=== PATIENT | male | born 1965 | race Caucasian/White ===

== ENCOUNTER 2023-10-18 08:48 | Inpatient (IN) | payer OTHER ==
[2023-10-18] VITALS (11 sets, daily range): BP systolic 138–147; BP diastolic 72–88; TEMP 97.7–98.6; O2SAT 99–100
[~2023-10-18] VITALS: Ht 165.1 cm; Wt 72.1 kg
[2023-10-18] MEDS ORDERED: IOHEXOL-350 100 ML VIAL IV ONE (09:08)
[2023-10-18] MEDS ORDERED: IV NS 0.9% 250 ML IV ONE (09:08)
[2023-10-18 09:15] LABS: BASOPHILS # (AUTO) 0.1 K/uL (0.0-0.2); BASOPHILS % (AUTO) 0.6 % (0.0-2.0); EOSINOPHILS # (AUTO) 0.5 K/uL (0.0-0.7); EOSINOPHILS % (AUTO) 5.1 % (0.0-6.0); HEMATOCRIT 23 % (39-51); HEMOGLOBIN 7.4 g/dL (13.5-17.5); LYMPHOCYTES # (AUTO) 1.3 K/uL (0.8-4.8); LYMPHOCYTES % (AUTO) 14.9 % (20.0-44.0); MEAN CORPUSCULAR HEMOGLOBIN 30 PG (26.0-33.0); MEAN CORPUSCULAR HGB CONC 33 g/dl (31.0-36.0); MEAN CORPUSCULAR VOLUME 92 fL (80-96); MONOCYTES # (AUTO) 0.6 K/uL (0.1-1.30); MONOCYTES % (AUTO) 6.3 % (2.0-12.0); NEUTROPHILS # (AUTO) 6.6 K/uL (1.8-8.9); NEUTROPHILS % (AUTO) 73.1 % (43.0-81.0); PLATELET COUNT (AUTO) 191 K/uL (150-450); RED BLOOD CELL COUNT(AUTO) 2.48 MIL/uL (4.5-6.0); RED CELL DISTRIBUTION WIDTH 16.4 % (11.5-15.0); WHITE BLOOD COUNT (AUTO) 9.1 K/uL (4.3-11.0)
[2023-10-18 09:24] LABS: INR 0.99 (0.91-1.10); PARTIAL THROMBOPLASTIN TIME 26.9 SEC (24.3-34.3); PROTHROMBIN TIME 10.5 SECS (9.2-11.1)
[2023-10-18 09:34] LABS: CALCIUM, SERUM 8.6 mg/dL (8.5-10.1); CARBON DIOXIDE 24 mmol/L (21-32); CHLORIDE 101 mmol/L (98-107); CREATININE 2.2 mg/dL (0.6-1.3); GLUCOSE 99 mg/dL (74-106); POTASSIUM 5.5 mmol/L (3.5-5.1); SODIUM SERUM 133 mmol/L (136-145); UREA NITROGEN, BLOOD 59 mg/dL (7-18)
[2023-10-18 09:41] LABS: CHOLESTEROL 97 mg/dL (<200); HDL CHOLESTEROL 53 mg/dL (40-60); LDL 42 mg/dL (0-99); TRIGLYCERIDES 66 mg/dL (30-150)
[2023-10-18 09:43] LABS: ALANINE AMINOTRANSFERASE 12 U/L (12-78); ALBUMIN 2.2 g/dL (3.4-5.0); ALKALINE PHOSPHATASE 149 U/L (46-116); ASPARTATE AMINOTRANSFERASE 14 U/L (15-37); BILIRUBIN,DIRECT 0.1 mg/dL (0.0-0.2); BILIRUBIN,TOTAL 0.2 mg/dL (0.2-1.0); TOTAL PROTEIN, SERUM 7.2 g/dL (6.4-8.2)
[2023-10-18 09:47] LABS: LACTIC ACID 1.1 mmol/L (0.4-2.0)
[2023-10-18] MEDS ORDERED: LOPE2TAB25 GT (09:52)
[2023-10-18] MEDS ORDERED: IBUP-1953 GT (09:52)
[2023-10-18] MEDS ORDERED: METF-440 GT (09:52)
[2023-10-18] MEDS ORDERED: INSU100V7 SQ (09:52)
[2023-10-18] MEDS ORDERED: ATOR40TA GT (09:52)
[2023-10-18] MEDS ORDERED: ASCO-352 GT (09:52)
[2023-10-18] MEDS ORDERED: FERR300L GT (09:52)
[2023-10-18] MEDS ORDERED: CARV3.122 GT (09:52)
[2023-10-18] MEDS ORDERED: ZINC50TA69 GT (09:52)
[2023-10-18] MEDS ORDERED: NUT.250L18 GT (09:52)
[2023-10-18] MEDS ORDERED: ALBU2.5V38 IH (09:52)
[2023-10-18] MEDS ORDERED: ASPI-1169 GT (09:52)
[2023-10-18] MEDS ORDERED: POVI3780 TP (09:52)
[2023-10-18] MEDS ORDERED: LISI-768 GT (09:52)
[2023-10-18] MEDS ORDERED: INSU100V27 SQ (09:52)
[2023-10-18] MEDS ORDERED: EMPA25TA GT (09:52)
[2023-10-18] MEDS ORDERED: FAMO20TA8 GT (09:52)
[2023-10-18] MEDS: LEVETIRACETAM (500MG) 500 MG in IV NS 0.9% 100 ML IV SCH (10:00)
[2023-10-18] MEDS ORDERED: MAG HYDROX/AL HYDROX/SIMETH 30 ML UDC GT PRN (12:30)
[2023-10-18] MEDS ORDERED: ONDANSETRON HCL/PF 4 MG/2 ML VIAL IVP PRN (12:30)
[2023-10-18] MEDS ORDERED: Z GUARD REMEDY 4 OZ OINT TP PRN (12:30)
[2023-10-18] MEDS ORDERED: MAGNESIUM HYDROXIDE 30 ML UDC GT PRN (12:30)
[2023-10-18] MEDS ORDERED: GLUCERNA 1.2 1,000 ML BOTTLE NG PRN (13:00)
[2023-10-18] MEDS ORDERED: GLUCERNA 1.2 1,000 ML BOTTLE GT PRN ×2 (13:00)
[2023-10-18] MEDS ORDERED: DEXTROSE 50%-WATER 50 ML DISP.SYRIN IV PRN (13:00)
[2023-10-18] MEDS ORDERED: IBUPROFEN 400 MG TABLET GT PRN (13:00)
[2023-10-18] MEDS: FERROUS SULFATE (325 MG) 325 MG/TAB TABLET GT SCH ×2 (14:04→18:02)
[2023-10-18] MEDS: ALBUTEROL FS 2.5 MG/3 ML VIAL.NEB IH SCH ×2 (14:19→19:53)
[2023-10-18] MEDS ORDERED: ACETYLCYSTEINE 10% SOLN 400 MG/4 ML VIAL NEB SCH (15:30)
[2023-10-18] MEDS: IPRATROPIUM NEB FS 0.5 MG/2.5 ML AMPUL.NEB NEB SCH ×2 (15:30→19:53)
[2023-10-18] MEDS: GLUCERNA 1.2 1,000 ML BOTTLE GT PRN (16:35)
[2023-10-18] MEDS ORDERED: METFORMIN 500 MG TABLET GT SCH (17:00)
[2023-10-18] MEDS: ASCORBIC ACID 500 MG TABLET GT SCH (18:02)
[2023-10-18] MEDS: CARVEDILOL 3.125 MG TABLET GT SCH (18:03)
[2023-10-18 18:46] LABS: ABG BASE EXCESS -3.8 mmol/L; ABG OXYGEN SATURATION 98.3 % (92.0-98.5); ABG PCO2 35.8 mmHg (35.0-45.0); ABG PH 7.383 (7.350-7.450); ABG TOTAL HEMOGLOBIN 7.2 G/dL (13.5-18.0); COHb 0.3 % (0.5-1.5); MetHb 0.2 % (0.0-1.5); O2Hb 97.8 % (94.0-97.0); PEEP,BG 5 cm H2O; SITE, ABG Left Radial; VT, ABG 500 mL
[2023-10-18] MEDS: BLOOD SUGAR DIAGNOSTIC 1 EACH STRIP IN SCH ×2 (18:48→23:15)
[2023-10-18] MEDS: INSULIN REGULAR, HUMAN 100 UNIT/ML 3 ML VIAL SQ PRN (18:48)
[2023-10-18] MEDS ORDERED: SODIUM POLYSTYRENE SULFONATE 15 G/60 ML BOTTLE GT ONE (19:30)
[2023-10-18] MEDS: ATORVASTATIN 40 MG TABLET GT SCH (21:17)
[2023-10-18] MEDS: FUROSEMIDE 100 MG/10 ML VIAL IV SCH (21:26)
[2023-10-18] MEDS: INSULIN GLARGINE, 100 UNIT/ML CARTRIDGE SQ SCH (21:30)
[2023-10-18] MEDS: ACETYLCYSTEINE 10% SOLN 400 MG/4 ML VIAL NEB SCH ×2 (23:30→23:55)
[2023-10-19] VITALS (18 sets, daily range): BP systolic 130–142; BP diastolic 74–82; TEMP 97.6–98.6; O2SAT 98–100
[2023-10-19] MEDS: FUROSEMIDE 100 MG/10 ML VIAL IV SCH ×5 (00:34→20:27)
[2023-10-19] MEDS: ALBUTEROL FS 2.5 MG/3 ML VIAL.NEB IH SCH ×4 (02:08→20:13)
[2023-10-19] MEDS: IPRATROPIUM NEB FS 0.5 MG/2.5 ML AMPUL.NEB NEB SCH ×4 (02:08→20:13)
[2023-10-19] MEDS: BLOOD SUGAR DIAGNOSTIC 1 EACH STRIP IN SCH ×3 (05:37→18:22)
[2023-10-19] MEDS: ACETYLCYSTEINE 10% SOLN 400 MG/4 ML VIAL NEB SCH ×6 (07:35→23:32)
[2023-10-19 08:19] LABS: BASOPHILS # (AUTO) 0.1 K/uL (0.0-0.2); BASOPHILS % (AUTO) 0.7 % (0.0-2.0); EOSINOPHILS # (AUTO) 0.3 K/uL (0.0-0.7); EOSINOPHILS % (AUTO) 3.5 % (0.0-6.0); HEMATOCRIT 24 % (39-51); HEMOGLOBIN 7.7 g/dL (13.5-17.5); LYMPHOCYTES % (AUTO) 11.3 % (20.0-44.0); MEAN CORPUSCULAR HEMOGLOBIN 30 PG (26.0-33.0); MEAN CORPUSCULAR HGB CONC 33 g/dl (31.0-36.0); MEAN CORPUSCULAR VOLUME 92 fL (80-96); MONOCYTES # (AUTO) 0.6 K/uL (0.1-1.30); MONOCYTES % (AUTO) 6.9 % (2.0-12.0); NEUTROPHILS # (AUTO) 6.7 K/uL (1.8-8.9); NEUTROPHILS % (AUTO) 77.6 % (43.0-81.0); PLATELET COUNT (AUTO) 201 K/uL (150-450); RED BLOOD CELL COUNT(AUTO) 2.57 MIL/uL (4.5-6.0); RED CELL DISTRIBUTION WIDTH 16.7 % (11.5-15.0); WHITE BLOOD COUNT (AUTO) 8.6 K/uL (4.3-11.0)
[2023-10-19 08:33] LABS: CALCIUM, SERUM 9.3 mg/dL (8.5-10.1); CREATININE 1.9 mg/dL (0.6-1.3); PHOSPHORUS 5.3 mg/dL (2.5-4.9); POTASSIUM 4.3 mmol/L (3.5-5.1)
[2023-10-19 08:48] LABS: THYROID STIMULATING HORMONE 1.946 uIU/mL (0.358-3.74)
[2023-10-19] MEDS: ASCORBIC ACID 500 MG TABLET GT SCH ×2 (08:54→17:48)
[2023-10-19] MEDS: FERROUS SULFATE (325 MG) 325 MG/TAB TABLET GT SCH ×3 (08:54→17:48)
[2023-10-19] MEDS: ASPIRIN 81 MG TAB.CHEW GT SCH (08:55)
[2023-10-19] MEDS: G GT SCH (08:55)
[2023-10-19] MEDS: CARVEDILOL 3.125 MG TABLET GT SCH ×2 (08:56→17:48)
[2023-10-19] MEDS ORDERED: EMPAGLIFLOZIN 25 MG TABLET GT SCH (09:00)
[2023-10-19] MEDS ORDERED: LISINOPRIL (5MG) 5 MG TABLET GT SCH (09:00)
[2023-10-19] MEDS: INSULIN REGULAR, HUMAN 100 UNIT/ML 3 ML VIAL SQ PRN ×2 (13:56→18:22)
[2023-10-19] MEDS: ATORVASTATIN 40 MG TABLET GT SCH (21:46)
[2023-10-19] MEDS: INSULIN GLARGINE, 100 UNIT/ML CARTRIDGE SQ SCH (22:21)
[2023-10-20] VITALS (18 sets, daily range): BP systolic 125–145; BP diastolic 69–80; TEMP 98.2–99.1; O2SAT 98–100
[2023-10-20] MEDS: INSULIN REGULAR, HUMAN 100 UNIT/ML 3 ML VIAL SQ PRN ×5 (00:38→23:14)
[2023-10-20] MEDS: BLOOD SUGAR DIAGNOSTIC 1 EACH STRIP IN SCH ×5 (00:40→23:12)
[2023-10-20] MEDS: IPRATROPIUM NEB FS 0.5 MG/2.5 ML AMPUL.NEB NEB SCH ×4 (01:46→19:43)
[2023-10-20] MEDS: ALBUTEROL FS 2.5 MG/3 ML VIAL.NEB IH SCH ×4 (01:46→19:43)
[2023-10-20 05:48] LABS: BASOPHILS # (AUTO) 0.1 K/uL (0.0-0.2); BASOPHILS % (AUTO) 0.6 % (0.0-2.0); EOSINOPHILS # (AUTO) 0.4 K/uL (0.0-0.7); EOSINOPHILS % (AUTO) 5.1 % (0.0-6.0); HEMATOCRIT 24 % (39-51); LYMPHOCYTES % (AUTO) 11.4 % (20.0-44.0); MEAN CORPUSCULAR HEMOGLOBIN 31 PG (26.0-33.0); MEAN CORPUSCULAR HGB CONC 34 g/dl (31.0-36.0); MEAN CORPUSCULAR VOLUME 91 fL (80-96); MONOCYTES # (AUTO) 0.6 K/uL (0.1-1.30); MONOCYTES % (AUTO) 7.6 % (2.0-12.0); NEUTROPHILS # (AUTO) 6.3 K/uL (1.8-8.9); NEUTROPHILS % (AUTO) 75.3 % (43.0-81.0); PLATELET COUNT (AUTO) 213 K/uL (150-450); RED BLOOD CELL COUNT(AUTO) 2.61 MIL/uL (4.5-6.0); RED CELL DISTRIBUTION WIDTH 16.4 % (11.5-15.0); WHITE BLOOD COUNT (AUTO) 8.4 K/uL (4.3-11.0)
[2023-10-20 06:13] LABS: ALBUMIN 2.3 g/dL (3.4-5.0); BILIRUBIN,TOTAL 0.4 mg/dL (0.2-1.0); CALCIUM, SERUM 9.1 mg/dL (8.5-10.1); CREATININE 2.2 mg/dL (0.6-1.3); MAGNESIUM 2.1 mg/dL (1.8-2.4); PHOSPHORUS 6.3 mg/dL (2.5-4.9); POTASSIUM 4.2 mmol/L (3.5-5.1); TOTAL PROTEIN, SERUM 7.4 g/dL (6.4-8.2)
[2023-10-20] MEDS: ACETYLCYSTEINE 10% SOLN 400 MG/4 ML VIAL NEB SCH ×4 (07:35→23:42)
[2023-10-20] MEDS: FERROUS SULFATE (325 MG) 325 MG/TAB TABLET GT SCH ×3 (08:54→17:20)
[2023-10-20] MEDS: ASCORBIC ACID 500 MG TABLET GT SCH ×2 (08:54→17:20)
[2023-10-20] MEDS: ASPIRIN 81 MG TAB.CHEW GT SCH (08:54)
[2023-10-20] MEDS: G GT SCH (08:54)
[2023-10-20] MEDS: CARVEDILOL 3.125 MG TABLET GT SCH ×2 (08:55→17:20)
[2023-10-20] MEDS: FUROSEMIDE 100 MG/10 ML VIAL IV SCH ×3 (11:47→21:21)
[2023-10-20] MEDS: SEVELAMER CARBONATE 800 MG TABLET PO SCH ×2 (12:57→17:20)
[2023-10-20] MEDS: GLUCERNA 1.2 1,000 ML BOTTLE GT PRN (19:18)
[2023-10-20] MEDS: ATORVASTATIN 40 MG TABLET GT SCH (21:16)
[2023-10-20] MEDS: INSULIN GLARGINE, 100 UNIT/ML CARTRIDGE SQ SCH (21:45)
[2023-10-21] VITALS (17 sets, daily range): BP systolic 121–144; BP diastolic 66–81; TEMP 98.1–99.5; O2SAT 97–100
[2023-10-21] MEDS: ALBUTEROL FS 2.5 MG/3 ML VIAL.NEB IH SCH ×4 (02:07→20:03)
[2023-10-21] MEDS: IPRATROPIUM NEB FS 0.5 MG/2.5 ML AMPUL.NEB NEB SCH ×4 (02:07→20:03)
[2023-10-21 06:22] LABS: BASOPHILS % (AUTO) 0.4 % (0.0-2.0); EOSINOPHILS # (AUTO) 0.7 K/uL (0.0-0.7); EOSINOPHILS % (AUTO) 7.4 % (0.0-6.0); HEMATOCRIT 25 % (39-51); HEMOGLOBIN 8.3 g/dL (13.5-17.5); LYMPHOCYTES # (AUTO) 1.3 K/uL (0.8-4.8); LYMPHOCYTES % (AUTO) 13.4 % (20.0-44.0); MEAN CORPUSCULAR HEMOGLOBIN 30 PG (26.0-33.0); MEAN CORPUSCULAR HGB CONC 34 g/dl (31.0-36.0); MEAN CORPUSCULAR VOLUME 90 fL (80-96); MONOCYTES # (AUTO) 0.8 K/uL (0.1-1.30); MONOCYTES % (AUTO) 8.6 % (2.0-12.0); NEUTROPHILS # (AUTO) 6.7 K/uL (1.8-8.9); NEUTROPHILS % (AUTO) 70.2 % (43.0-81.0); PLATELET COUNT (AUTO) 212 K/uL (150-450); RED BLOOD CELL COUNT(AUTO) 2.72 MIL/uL (4.5-6.0); RED CELL DISTRIBUTION WIDTH 16.1 % (11.5-15.0); WHITE BLOOD COUNT (AUTO) 9.5 K/uL (4.3-11.0)
[2023-10-21] MEDS: BLOOD SUGAR DIAGNOSTIC 1 EACH STRIP IN SCH ×4 (06:23→23:40)
[2023-10-21] MEDS: INSULIN REGULAR, HUMAN 100 UNIT/ML 3 ML VIAL SQ PRN ×3 (06:33→23:15)
[2023-10-21 06:48] LABS: ALBUMIN 2.1 g/dL (3.4-5.0); BILIRUBIN,TOTAL 0.3 mg/dL (0.2-1.0); CALCIUM, SERUM 8.7 mg/dL (8.5-10.1); CREATININE 2.7 mg/dL (0.6-1.3); MAGNESIUM 2.1 mg/dL (1.8-2.4); PHOSPHORUS 5.7 mg/dL (2.5-4.9); POTASSIUM 4.1 mmol/L (3.5-5.1); TOTAL PROTEIN, SERUM 7.2 g/dL (6.4-8.2)
[2023-10-21 07:06] LABS: PTH, INTACT 32 pg/mL (15-65)
[2023-10-21] MEDS: ACETYLCYSTEINE 10% SOLN 400 MG/4 ML VIAL NEB SCH ×2 (07:35→23:57)
[2023-10-21] MEDS: ASPIRIN 81 MG TAB.CHEW GT SCH (08:49)
[2023-10-21] MEDS: G GT SCH (08:49)
[2023-10-21] MEDS: SEVELAMER CARBONATE 800 MG TABLET PO SCH ×3 (08:49→18:18)
[2023-10-21] MEDS: CARVEDILOL 3.125 MG TABLET GT SCH ×2 (08:49→18:19)
[2023-10-21] MEDS: ASCORBIC ACID 500 MG TABLET GT SCH ×2 (08:50→18:18)
[2023-10-21] MEDS: FERROUS SULFATE (325 MG) 325 MG/TAB TABLET GT SCH ×3 (08:50→18:18)
[2023-10-21] MEDS: PROSOURCE / PROSTAT (PYXIS) 30 ML UDC GT SCH (08:51)
[2023-10-21] MEDS: FUROSEMIDE 100 MG/10 ML VIAL IV SCH ×3 (12:11→18:18)
[2023-10-21] MEDS: METOLAZONE 2.5 MG TABLET PO SCH (12:12)
[2023-10-21] MEDS: INSULIN GLARGINE, 100 UNIT/ML CARTRIDGE SQ SCH (22:00)
[2023-10-21] MEDS: ATORVASTATIN 40 MG TABLET GT SCH (23:14)
[2023-10-22] VITALS (17 sets, daily range): BP systolic 106–137; BP diastolic 64–90; TEMP 98.1–99; O2SAT 98–100
[2023-10-22] MEDS: ALBUTEROL FS 2.5 MG/3 ML VIAL.NEB IH SCH ×4 (01:20→20:34)
[2023-10-22] MEDS: IPRATROPIUM NEB FS 0.5 MG/2.5 ML AMPUL.NEB NEB SCH ×4 (01:20→20:34)
[2023-10-22] MEDS: INSULIN REGULAR, HUMAN 100 UNIT/ML 3 ML VIAL SQ PRN ×4 (06:39→21:41)
[2023-10-22] MEDS: BLOOD SUGAR DIAGNOSTIC 1 EACH STRIP IN SCH ×4 (06:39→21:37)
[2023-10-22 07:09] LABS: BASOPHILS % (AUTO) 0.5 % (0.0-2.0); EOSINOPHILS # (AUTO) 1.1 K/uL (0.0-0.7); EOSINOPHILS % (AUTO) 12.3 % (0.0-6.0); HEMATOCRIT 24 % (39-51); HEMOGLOBIN 7.9 g/dL (13.5-17.5); LYMPHOCYTES # (AUTO) 1.5 K/uL (0.8-4.8); MEAN CORPUSCULAR HEMOGLOBIN 30 PG (26.0-33.0); MEAN CORPUSCULAR HGB CONC 34 g/dl (31.0-36.0); MEAN CORPUSCULAR VOLUME 90 fL (80-96); MONOCYTES # (AUTO) 0.7 K/uL (0.1-1.30); MONOCYTES % (AUTO) 8.2 % (2.0-12.0); NEUTROPHILS # (AUTO) 5.6 K/uL (1.8-8.9); PLATELET COUNT (AUTO) 224 K/uL (150-450); RED BLOOD CELL COUNT(AUTO) 2.63 MIL/uL (4.5-6.0); RED CELL DISTRIBUTION WIDTH 15.7 % (11.5-15.0)
[2023-10-22 07:13] LABS: CALCIUM, SERUM 8.6 mg/dL (8.5-10.1); CREATININE 2.8 mg/dL (0.6-1.3); PHOSPHORUS 5.7 mg/dL (2.5-4.9); POTASSIUM 3.8 mmol/L (3.5-5.1)
[2023-10-22] MEDS: SEVELAMER CARBONATE 800 MG TABLET PO SCH ×3 (08:14→18:25)
[2023-10-22] MEDS: PROSOURCE / PROSTAT (PYXIS) 30 ML UDC GT SCH (08:15)
[2023-10-22] MEDS: ACETYLCYSTEINE 10% SOLN 400 MG/4 ML VIAL NEB SCH ×3 (08:17→23:51)
[2023-10-22 08:48] LABS: ALBUMIN 2.1 g/dL (3.4-5.0); BILIRUBIN,TOTAL 0.3 mg/dL (0.2-1.0)
[2023-10-22] MEDS: G GT SCH (09:27)
[2023-10-22] MEDS: METOLAZONE 2.5 MG TABLET PO SCH (09:27)
[2023-10-22] MEDS: ASCORBIC ACID 500 MG TABLET GT SCH ×2 (09:28→17:12)
[2023-10-22] MEDS: ASPIRIN 81 MG TAB.CHEW GT SCH (09:28)
[2023-10-22] MEDS: CARVEDILOL 3.125 MG TABLET GT SCH ×2 (09:29→17:00)
[2023-10-22] MEDS: FERROUS SULFATE (325 MG) 325 MG/TAB TABLET GT SCH ×3 (09:29→17:12)
[2023-10-22] MEDS ORDERED: DEXTROSE 50%-WATER 50 ML DISP.SYRIN IV PRN (21:00)
[2023-10-22] MEDS: ATORVASTATIN 40 MG TABLET GT SCH (21:35)
[2023-10-22] MEDS: INSULIN GLARGINE, 100 UNIT/ML CARTRIDGE SQ SCH (21:39)
[2023-10-23] VITALS (16 sets, daily range): BP systolic 124–152; BP diastolic 70–88; TEMP 97.6–98.2; O2SAT 97–100
[2023-10-23] MEDS: ALBUTEROL FS 2.5 MG/3 ML VIAL.NEB IH SCH ×4 (02:17→19:58)
[2023-10-23] MEDS: IPRATROPIUM NEB FS 0.5 MG/2.5 ML AMPUL.NEB NEB SCH ×4 (02:17→19:57)
[2023-10-23 06:48] LABS: BASOPHILS # (AUTO) 0.1 K/uL (0.0-0.2); BASOPHILS % (AUTO) 0.6 % (0.0-2.0); EOSINOPHILS # (AUTO) 1.1 K/uL (0.0-0.7); EOSINOPHILS % (AUTO) 12.4 % (0.0-6.0); HEMATOCRIT 24 % (39-51); LYMPHOCYTES # (AUTO) 1.5 K/uL (0.8-4.8); LYMPHOCYTES % (AUTO) 16.4 % (20.0-44.0); MEAN CORPUSCULAR HEMOGLOBIN 30 PG (26.0-33.0); MEAN CORPUSCULAR HGB CONC 34 g/dl (31.0-36.0); MEAN CORPUSCULAR VOLUME 90 fL (80-96); MONOCYTES # (AUTO) 0.8 K/uL (0.1-1.30); MONOCYTES % (AUTO) 8.9 % (2.0-12.0); NEUTROPHILS # (AUTO) 5.6 K/uL (1.8-8.9); NEUTROPHILS % (AUTO) 61.7 % (43.0-81.0); PLATELET COUNT (AUTO) 240 K/uL (150-450); RED BLOOD CELL COUNT(AUTO) 2.62 MIL/uL (4.5-6.0); RED CELL DISTRIBUTION WIDTH 15.6 % (11.5-15.0); WHITE BLOOD COUNT (AUTO) 9.1 K/uL (4.3-11.0)
[2023-10-23 07:04] LABS: CALCIUM, SERUM 8.6 mg/dL (8.5-10.1); CREATININE 2.8 mg/dL (0.6-1.3); MAGNESIUM 2.1 mg/dL (1.8-2.4)
[2023-10-23] MEDS: ACETYLCYSTEINE 10% SOLN 400 MG/4 ML VIAL NEB SCH ×2 (08:05→14:30)
[2023-10-23] MEDS: BLOOD SUGAR DIAGNOSTIC 1 EACH STRIP IN SCH ×4 (08:11→22:49)
[2023-10-23] MEDS: FERROUS SULFATE (325 MG) 325 MG/TAB TABLET GT SCH ×3 (08:45→17:33)
[2023-10-23] MEDS: G GT SCH (08:45)
[2023-10-23] MEDS: SEVELAMER CARBONATE 800 MG TABLET PO SCH ×3 (08:46→17:33)
[2023-10-23] MEDS: METOLAZONE 2.5 MG TABLET PO SCH (08:46)
[2023-10-23] MEDS: ASCORBIC ACID 500 MG TABLET GT SCH ×2 (08:46→17:33)
[2023-10-23] MEDS: ASPIRIN 81 MG TAB.CHEW GT SCH (08:46)
[2023-10-23] MEDS: PROSOURCE / PROSTAT (PYXIS) 30 ML UDC GT SCH (08:47)
[2023-10-23] MEDS: CARVEDILOL 3.125 MG TABLET GT SCH ×2 (08:47→17:33)
[2023-10-23] MEDS: INSULIN REGULAR, HUMAN 100 UNIT/ML 3 ML VIAL SQ PRN ×3 (12:15→22:42)
[2023-10-23] MEDS: ACETAMINOPHEN 650 MG/20.3 ML UDC GT PRN (14:35)
[2023-10-23] MEDS: INSULIN GLARGINE, 100 UNIT/ML CARTRIDGE SQ SCH (22:38)
[2023-10-23] MEDS: ATORVASTATIN 40 MG TABLET GT SCH (22:49)
[2023-10-24] VITALS (17 sets, daily range): BP systolic 114–135; BP diastolic 64–84; TEMP 97.7–98.7; O2SAT 99–100
[2023-10-24] MEDS: ACETYLCYSTEINE 10% SOLN 400 MG/4 ML VIAL NEB SCH ×4 (00:46→23:54)
[2023-10-24] MEDS: IPRATROPIUM NEB FS 0.5 MG/2.5 ML AMPUL.NEB NEB SCH ×4 (01:16→19:52)
[2023-10-24] MEDS: ALBUTEROL FS 2.5 MG/3 ML VIAL.NEB IH SCH ×4 (01:16→19:52)
[2023-10-24] MEDS: BLOOD SUGAR DIAGNOSTIC 1 EACH STRIP IN SCH ×4 (08:26→22:31)
[2023-10-24] MEDS: INSULIN REGULAR, HUMAN 100 UNIT/ML 3 ML VIAL SQ PRN ×4 (08:29→23:11)
[2023-10-24] MEDS: G GT SCH (08:39)
[2023-10-24] MEDS: CARVEDILOL 3.125 MG TABLET GT SCH ×2 (08:39→17:29)
[2023-10-24] MEDS: ASPIRIN 81 MG TAB.CHEW GT SCH (08:39)
[2023-10-24] MEDS: FERROUS SULFATE (325 MG) 325 MG/TAB TABLET GT SCH ×3 (08:39→17:30)
[2023-10-24] MEDS: SEVELAMER CARBONATE 800 MG TABLET PO SCH ×3 (08:39→17:30)
[2023-10-24] MEDS: PROSOURCE / PROSTAT (PYXIS) 30 ML UDC GT SCH (08:39)
[2023-10-24] MEDS: ASCORBIC ACID 500 MG TABLET GT SCH ×2 (08:40→17:30)
[2023-10-24] MEDS: METOLAZONE 2.5 MG TABLET PO SCH (08:40)
[2023-10-24] MEDS: ACETAMINOPHEN 650 MG/20.3 ML UDC GT PRN ×2 (08:45→22:52)
[2023-10-24] MEDS: ATORVASTATIN 40 MG TABLET GT SCH (22:31)
[2023-10-24] MEDS: INSULIN GLARGINE, 100 UNIT/ML CARTRIDGE SQ SCH (22:45)
[2023-10-25] VITALS (16 sets, daily range): BP systolic 123–140; BP diastolic 69–75; TEMP 97.8–99; O2SAT 98–100
[2023-10-25] MEDS: IPRATROPIUM NEB FS 0.5 MG/2.5 ML AMPUL.NEB NEB SCH ×3 (01:11→13:04)
[2023-10-25] MEDS: ALBUTEROL FS 2.5 MG/3 ML VIAL.NEB IH SCH ×3 (01:11→13:04)
[2023-10-25] MEDS: BLOOD SUGAR DIAGNOSTIC 1 EACH STRIP IN SCH ×4 (07:43→16:36)
[2023-10-25] MEDS ORDERED: METO2.5T7 PO (07:44)
[2023-10-25] MEDS: ACETYLCYSTEINE 10% SOLN 400 MG/4 ML VIAL NEB SCH ×2 (08:05→16:14)
[2023-10-25] MEDS: PROSOURCE / PROSTAT (PYXIS) 30 ML UDC GT SCH (08:24)
[2023-10-25] MEDS: METOLAZONE 2.5 MG TABLET PO SCH (08:25)
[2023-10-25] MEDS: G GT SCH (08:25)
[2023-10-25] MEDS: ASPIRIN 81 MG TAB.CHEW GT SCH (08:25)
[2023-10-25] MEDS: FERROUS SULFATE (325 MG) 325 MG/TAB TABLET GT SCH ×3 (08:25→16:33)
[2023-10-25] MEDS: SEVELAMER CARBONATE 800 MG TABLET PO SCH ×3 (08:25→18:00)
[2023-10-25] MEDS: ASCORBIC ACID 500 MG TABLET GT SCH ×2 (08:26→16:32)
[2023-10-25] MEDS: CARVEDILOL 3.125 MG TABLET GT SCH ×2 (08:26→16:33)
[2023-10-25] MEDS: INSULIN REGULAR, HUMAN 100 UNIT/ML 3 ML VIAL SQ PRN ×3 (08:28→16:35)
[2023-10-25 09:07] LABS: *SPE A/G RATIO 0.5 (0.7-1.7); *SPE ALBUMIN 2.2 g/dL (2.9-4.4); *SPE ALPHA-1-GLOBULIN 0.3 g/dL (0.0-0.4); *SPE ALPHA-2-GLOBULIN 0.8 g/dL (0.4-1.0); *SPE BETA GLOBULIN 0.8 g/dL (0.7-1.3); *SPE GLOBULIN, TOTAL 4.3 g/dL (2.2-3.9); *SPE M-SPIKE 0.9 g/dL (Not Observed); *SPE PROTEIN TOTAL 6.5 g/dL (6.0-8.5); *SPEGAMMA GLOBULIN 2.4 g/dL (0.4-1.8)
[2023-10-25 09:29] LABS: BASOPHILS % (AUTO) 0.6 % (0.0-2.0); EOSINOPHILS # (AUTO) 0.6 K/uL (0.0-0.7); EOSINOPHILS % (AUTO) 7.8 % (0.0-6.0); HEMATOCRIT 24 % (39-51); LYMPHOCYTES # (AUTO) 1.2 K/uL (0.8-4.8); LYMPHOCYTES % (AUTO) 15.4 % (20.0-44.0); MEAN CORPUSCULAR HEMOGLOBIN 30 PG (26.0-33.0); MEAN CORPUSCULAR HGB CONC 34 g/dl (31.0-36.0); MEAN CORPUSCULAR VOLUME 90 fL (80-96); MONOCYTES # (AUTO) 0.6 K/uL (0.1-1.30); MONOCYTES % (AUTO) 7.9 % (2.0-12.0); NEUTROPHILS # (AUTO) 5.4 K/uL (1.8-8.9); NEUTROPHILS % (AUTO) 68.3 % (43.0-81.0); PLATELET COUNT (AUTO) 268 K/uL (150-450); RED BLOOD CELL COUNT(AUTO) 2.68 MIL/uL (4.5-6.0); RED CELL DISTRIBUTION WIDTH 15.8 % (11.5-15.0); WHITE BLOOD COUNT (AUTO) 7.9 K/uL (4.3-11.0)
[2023-10-25 09:52] LABS: ALBUMIN 2.2 g/dL (3.4-5.0); BILIRUBIN,TOTAL 0.3 mg/dL (0.2-1.0); CALCIUM, SERUM 8.9 mg/dL (8.5-10.1); CREATININE 2.5 mg/dL (0.6-1.3); MAGNESIUM 2.5 mg/dL (1.8-2.4); POTASSIUM 3.9 mmol/L (3.5-5.1); TOTAL PROTEIN, SERUM 7.4 g/dL (6.4-8.2)
[2023-10-25] MEDS ORDERED: DOXYCYCLINE HYCLATE (100 MG) 100 MG TABLET PO SCH (21:00)
[2023-10-25] MEDS ORDERED: AMOX/CLAVULANATE 875 MG TABLET PO SCH (21:00)
== END 2023-10-25 18:47 | DRG 133 ==
LOC: ER 09:02 → TELE-TD 11:48 → TELE1 10-19 08:42
PROVIDERS: ATTEND Nurse Practitioner Acute Care
PROC: 5A1935Z Respiratory Ventilation, Less than 24 Consecutive Hours (ICD-10-PCS; principal; 2023-10-18)
DX: J96.21 Acute and chronic respiratory failure with hypoxia (principal); G92.8 Other toxic encephalopathy; I13.0 Hypertensive heart and chronic kidney disease with heart failure and stage 1 through stage 4 chronic kidney disease, or unspecified chronic kidney disease; N17.9 Acute kidney failure, unspecified; J39.1 Other abscess of pharynx; E83.39 Other disorders of phosphorus metabolism; E87.1 Hypo-osmolality and hyponatremia; E11.22 Type 2 diabetes mellitus with diabetic chronic kidney disease; I50.9 Heart failure, unspecified; H70.93 Unspecified mastoiditis, bilateral; N18.4 Chronic kidney disease, stage 4 (severe); I48.92 Unspecified atrial flutter; I48.20 Chronic atrial fibrillation, unspecified; G40.909 Epilepsy, unspecified, not intractable, without status epilepticus; D64.9 Anemia, unspecified; E78.5 Hyperlipidemia, unspecified; E87.5 Hyperkalemia; R13.10 Dysphagia, unspecified; Z93.0 Tracheostomy status; Z79.82 Long term (current) use of aspirin; Z79.4 Long term (current) use of insulin; M89.8X9 Other specified disorders of bone, unspecified site; J98.11 Atelectasis; Z79.84 Long term (current) use of oral hypoglycemic drugs; Z87.39 Personal history of other diseases of the musculoskeletal system and connective tissue; Z93.1 Gastrostomy status; R59.1 Generalized enlarged lymph nodes
CPT/HCPCS: 31720; 36415; 36600; 70450-TC; 70496-TC; 70498-TC; 71045-TC; 76770-TC; 80048-TC; 80053-TC; 80061-TC; 80076-TC; 82550-TC; 82803-TC; 82962-TC; 83605-TC; 83735-TC; 83970; 84100-TC; 84155; 84165; 84443-TC; 84484-TC; 85025-TC; 85730-TC; 86850-TC; 87040-TC; 92526; 92611-TC; 93307-TC; 94002-TC; 94640-TC; 94799-TC; A4623; A6403; A7526; G0378; J1815; J1940; J1953; J7030; J7050; Q9967